=== PATIENT | female | born 1960 | race Caucasian/White ===

== ENCOUNTER 2018-02-15 15:35 | Emergency (ER) | payer SELFPAY ==
[~2018-02-15] VITALS: Ht 167.6 cm; Wt 74.8 kg
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
--- NOTE | 2018-02-15 16:10 | NUR ---
Lola OVALLES, AGACNP-BC IS AT THE BEDSIDE SPEAKING TO THE PT.
[2018-02-15 16:20] VITALS: BP 134/59
[2018-02-15] MEDS ORDERED: FAMOTIDINE (20 MG) 20 MG TABLET ONE (16:21)
--- NOTE | 2018-02-15 16:25 | NUR ---
PEPCID 20MG PO GIVEN. UNABLE TO DARIUS OF EMAR.
[2018-02-15] MEDS ORDERED: FAMOTIDINE (20 MG) 20 MG TABLET PO ONE (16:30)
== END 2018-02-15 16:24 | disposition home or self-care (01) ==
LOC: ER 15:37
DX: T65.891A Toxic effect of other specified substances, accidental (unintentional), initial encounter (principal); G35 Multiple sclerosis; Z86.011 Personal history of benign neoplasm of the brain; Z88.5 Allergy status to narcotic agent; Y92.89 Other specified places as the place of occurrence of the external cause
CPT/HCPCS: 99283; A4606; Z7610